=== PATIENT | female | born 1960 ===

== ENCOUNTER 2025-02-04 07:00 | Day surgery (SDC) | payer OTHER ==
[2025-01-30 11:00] LABS: URINE APPEARANCE Clear; URINE BILIRRUBIN Negative (NEGATIVE); URINE BLOOD Negative; URINE COLOR Yellow; URINE GLUCOSE Negative (NEGATIVE); URINE KETONE Negative (NEGATIVE); URINE LEUKOCYTE Moderate; URINE NITRATE Negative; URINE PROTEIN Trace (NEGATIVE); URINE UROBILINOGEN 0.2 E.U./dl
[2025-01-30 11:04] LABS: BASO % 0.8 % (0.1-1.2); EOS # 0.39 (0.04-0.54); EOS % 4.4 % (0.7-7.0); LYMPH # 3.56 (1.18-3.74); LYMPH % 40.5 % (19.3-53.1); MEAN PLATELET VOLUME 10.00 fl (9.4-12.4); MONO # 0.43 (0.24-0.82); MONO % 4.9 % (4.7-12.5); NEUT # 4.30 (1.56-6.13); NEUT % 49.1 % (34.0-71.1); RED CELL DISTRIBUTION WIDTH 17.2 % (11.6-14.4)
[2025-01-30 11:04] LABS: URINE BACTERIA 4762.5 uL (0.0-1933); URINE CAST 1.46 uL (0.0-1.40); URINE EPITHELIAL CELLS 36.1 uL (0.0-38.8); URINE RBC 3.8 uL (0.0-20.8); URINE WBC 19.6 uL (0.0-23.2)
[2025-01-30 11:18] LABS: INR 0.97
[2025-01-30 11:41] LABS: ALT/SGPT 28.0 U/L (12-78); AST/SGOT 35.0 U/L (15-37); BILIRUBIN TOTAL 0.49 mg/dL (0.3-1.2); BUN CREA RATIO 35.0 (7.0-25.0); CREATININE SERUM 0.86 mg/dL (0.55-1.02); GFR 66.64; GLOBULINA 5.0 G/DL (2.4-3.5); GLUCOSE FASTING 93.0 mg/dL (65-100); OSMOLALITY SERUM 291.0 MOSM/KG (275-295)
[~2025-02-04 07:00] MED LIST: CALCIUM 600+D1 EAC1; DICLOFENAC POTA50 MG; FERROCITE324 MG; FOLIC ACID1 MG; HORIZANT300 MG; LASIX40 MG; PEPCID20 MG; SYNTHROID50 MCG; TRENTAL
[2025-02-04] MEDS ORDERED: CEFAZOLIN SODIUM 1,000 MG VIAL ONE (08:12)
[2025-02-04] MEDS ORDERED: LIDOCAINE HCL 1% 20 ML VIAL IJ ONE (08:59)
[2025-02-04] MEDS ORDERED: LIDOCAINE HCL 1%/EPINEPHRINE 20ML VIAL IJ ONE (08:59)
== END 2025-02-04 13:15 | disposition home or self-care (01) ==
LOC: CIR.AMB 07:00
PROVIDERS: ATTEND Surgery
DX: I87.012 Postthrombotic syndrome with ulcer of left lower extremity (principal); Z88.8 Allergy status to other drugs, medicaments and biological substances